=== PATIENT | male | born 1995 | race Two or more races ===

== ENCOUNTER 2024-10-22 20:26 | Emergency (ER) | payer MEDICAID ==
[~2024-10-22] VITALS: Ht 177.8 cm; Wt 2.6 kg
[2024-10-22 21:29] VITALS: BP 129/77; TEMP 98.3; O2SAT 99
[2024-10-22] MEDS ORDERED: IBUPROFEN 600 MG TABLET ONE (21:55)
[2024-10-22] MEDS: IBUPROFEN 600 MG TABLET PO ONE (21:56)
== END 2024-10-22 22:27 | disposition home or self-care (01) ==
LOC: ER 20:29
DX: S89.92XA Unspecified injury of left lower leg, initial encounter (principal); X58.XXXA Exposure to other specified factors, initial encounter; Y93.66 Activity, soccer; Y92.89 Other specified places as the place of occurrence of the external cause; Y99.8 Other external cause status